=== PATIENT | male | born 1965 | race Caucasian/White ===

== ENCOUNTER 2016-12-03 11:58 | Emergency (ER) | payer OTHER ==
[2016-12-03 12:10] VITALS: BP 149/94
--- NOTE | 2016-12-03 13:07 | XRAY Preliminary Report ---
Exam: XR Knee 4 View RT IMPRESSION: Mild degenerative changes. [facility] SITE ID: [id number]
--- NOTE | 2016-12-03 13:10 | XRAY Report ---
EXAM: RIGHT KNEE RADIOGRAPHY EXAM DATE: 12/03/2016 12:53 PM. CLINICAL HISTORY: Right knee pain, infrapatellar. COMPARISON: None. TECHNIQUE: 4 views. FINDINGS: Bones: Normal. No fractures or bone lesions. Joints: Spurring of medial tibial spine and intercondylar notch. No joint effusion. Normal alignment. Soft Tissues: Superior patellar enthesophyte. No soft tissue swelling. IMPRESSION: Mild degenerative changes. [facility] Referring Provider Line: [phone] SITE ID: [id number]
--- NOTE | 2016-12-03 13:50 | ED Physician Documentation ---
PD HPI LOWER EXT INJURY - Stated complaint Stated Complaint: R KNEE PX - Chief complaint Chief Complaint: Ext Problem - History obtained from History obtained from: Patient, Family (spouse) - History of Present Illness PD HPI LOW EXT INJURY LOCATION: Right, Knee Type of injury: Other (No injury.) Timing - onset: How many days ago (4) Timing - details: Intermittant Worsened by: Moving, Other (Weightbearing.) Associated symptoms: No: Weakness, Numbness, Swelling Contributing factors: Other (Arthritic knees.) - Treatment prior to arrival Treatment prior to arrival: One Tylenol with Codeine yesterday, without relief. - Additional information Additional information: The patient is a 51-year-old male presents with sharp stabbing pain in his right knee. It has been intermittent for the past 4 days. He denies any injury. Denies swelling or fever. He has a history of arthritis involving his knees. He reports similar pain in the past, but not this bad. His past medical history is significant for CVA in 2009. He is visiting here from [place] , having driven cross[place]country 2 weeks ago. Review of Systems Constitutional: denies: Fever Nose: denies: Congestion Cardiac: denies: Chest pain / pressure Respiratory: denies: Dyspnea, Cough GI: denies: Abdominal Pain, Nausea, Vomiting Skin: denies: Rash Musculoskeletal: reports: Joint pain (Right knee). denies: Back pain Neurologic: denies: Focal weakness, Numbness, Headache PD PAST MEDICAL HISTORY - Past Medical History Past Medical History: Yes Cardiovascular: Hypertension, High cholesterol Neuro: CVA (2009), TIA, Tremors Endocrine/Autoimmune: None Psych: Anxiety, Panic attacks, Post traumatic stress disorder - Past Surgical History Past Surgical History: No - Present Medications Home Medications: Ambulatory Orders Medication Instructions Recorded Confirmed Baclofen 10 mg PO BID PRN 12/03/16 12/03/16 Bupropion HCl [Bupropion HCl Sr] 150 mg PO BID 12/03/16 12/03/16 Codeine/Acetaminophen 12/03/16 Cyanocobalamin [Vitamin B-12] 1,000 mcg PO DAILY 12/03/16 12/03/16 Dicyclomine [Bentyl] 20 mg PO QID 12/03/16 12/03/16 Docusate Sodium 100 mg PO BID PRN 12/03/16 12/03/16 Doxycycline Hyclate 100 mg PO Q12H 12/03/16 12/03/16 HYDROcod/ACETAM 5/325 [Vicodin 1 - 2 ea PO Q6H PRN #20 tablet 12/03/16 5/325] LORazepam [Ativan] 0.5 mg PO TID 12/03/16 12/03/16 Lisinopril 20 mg PO DAILY 12/03/16 12/03/16 Naltrexone HCl 50 mg PO DAILY 12/03/16 12/03/16 Naproxen 375 mg PO BID 12/03/16 12/03/16 Nortriptyline HCl 75 mg PO DAILY 12/03/16 12/03/16 Omeprazole 20 mg PO BID 12/03/16 12/03/16 Propranolol [Inderal] 10 mg PO TID 12/03/16 12/03/16 Simvastatin 20 mg PO DAILY 12/03/16 12/03/16 buPROPion [Wellbutrin Xl] 150 mg PO BID 12/03/16 12/03/16 hydroCHLOROthiazide [Hydrodiuril] 25 mg PO DAILY 12/03/16 12/03/16 - Allergies Allergies/Adverse Reactions: Allergies Allergy/AdvReac Type Severity Reaction Status Date / Time Unable to Assess Allergy Verified 12/03/16 12:08 - Social History Does the pt smoke?: No Smoking Status: Never smoker Does the pt drink ETOH?: No Does the pt have substance abuse?: Yes - Immunizations Immunizations are current?: Yes - POLST Patient has POLST: No PD ED PE NORMAL - Vitals Vital signs reviewed: Yes (hypertensive) - General General: Alert and oriented X 3, Well developed/nourished, Other (Overweight; speaks with a stutter.) - HEENT HEENT: Atraumatic - Neck Neck: No bony TTP - Cardiac Cardiac: RRR - Respiratory Respiratory: No respiratory distress, Clear bilaterally - Back Back: No CVA TTP, No spinal TTP - Derm Derm: No rash - Extremities Extremities: No edema, No calf tenderness / cord, Other (Tenderness to palpation over the infrapatellar tendon no tenderness to palpation over the medial joint line, lateral popliteal fossa. Able to flex to 90, and fully extend. There is no ligamentous instability detected. Distal neurovascular is intact.) - Neuro Neuro: Alert and oriented X 3, No motor deficit, No sensory deficit, Other ( Gross tremor involving mostly the right upper extremity.) Results - Vitals Vitals: Oxygen O2 Source Room air - Rads (name of study) Right knee Radiology: Prelim report reviewed, EMP read contemporaneously, See rad report ( Mild degenerative changes.) PD MEDICAL DECISION MAKING - ED course Complexity details: reviewed results, re-evaluated patient, considered differential, d/w patient, d/w family ED course: The patient's presentation is most consistent with right knee strain. X-ray reveals arthritic changes, with no evidence of acute radiographic abnormality. His presentation does not suggest a septic joint or DVT. Treatment in the emergency department included application of a knee immobilizer, and administration of Vicodin one tablet orally. Discharged with prescription for Vicodin, 20 tablets. I discussed with him and his the expected course of injury, symptomatic treatment and outpatient follow-up, as potentially worrisome signs or symptoms that should prompt reevaluation in the emergency department. Departure - Departure Disposition: 01 Home, Self Care Clinical Impression: Knee strain Qualifiers: Encounter type: initial encounter Laterality: right Qualified Code(s): S86.911A - Strain of unspecified muscle(s) and tendon(s) at lower leg level, right leg, initial encounter Instructions: ED Sprain Knee Prescriptions: HYDROcod/ACETAM 5/325 [Vicodin 5/325] 1 - 2 ea PO Q6H PRN #20 tablet PRN Reason: Pain Comments: Use a knee mobilizer for comfort. Apply icepack to your knee intermittently for the next 2 or 3 days. You can use ibuprofen, up to 800 mg 3 times daily for its anti-inflammatory effect. You can use Vicodin as prescribed if needed for pain. Return to the emergency room if you develop increasing pain or otherwise worsening symptoms. Discharge Date/Time: 12/03/16 14:24
[2016-12-03] MEDS ORDERED: HYDROcod/ACETAM 5/325 MG TABLET PO STA (13:57)
[2016-12-03] MEDS ORDERED: HYDROcod/ACETAM 5/325 MG TABLET ONE (14:04)
== END 2016-12-03 14:24 | disposition home or self-care (01) ==
LOC: ED 11:58
DX: S86.911A Strain of unspecified muscle(s) and tendon(s) at lower leg level, right leg, initial encounter (principal); X58.XXXA Exposure to other specified factors, initial encounter; M17.11 Unilateral primary osteoarthritis, right knee; I10 Essential (primary) hypertension; Z86.73 Personal history of transient ischemic attack (TIA), and cerebral infarction without residual deficits
CPT/HCPCS: 73564; 99283; A9270

== ENCOUNTER 2019-12-05 09:57 | Emergency (ER) | payer OTHER ==
[2019-12-05 10:04] VITALS: BP 142/48
--- NOTE | 2019-12-05 10:19 | ED Physician Documentation ---
PD HPI HEENT - Stated complaint Stated Complaint: EAR PX - Chief complaint Chief Complaint: Heent - History obtained from History obtained from: Patient - Additional information Additional information: Had an intermittent pain near the left ear today. He has chronic tinnitus which is unchanged. There is no loss of hearing. No other URI symptoms. Pain is mild at this juncture. Review of Systems Constitutional: reports: Reviewed and negative Nose: reports: Reviewed and negative Cardiac: reports: Reviewed and negative Respiratory: reports: Reviewed and negative PD PAST MEDICAL HISTORY - Past Medical History Cardiovascular: Hypertension, High cholesterol Endocrine/Autoimmune: None Psych: Anxiety, Panic attacks, Post traumatic stress disorder - Past Surgical History Past Surgical History: Yes General: Colonoscopy - Present Medications Home Medications: Ambulatory Orders Medication Instructions Recorded Confirmed Baclofen 10 mg PO BID PRN 12/03/16 12/03/16 Cyanocobalamin [Vitamin B-12] 1,000 mcg PO DAILY 12/03/16 12/03/16 Dicyclomine [Bentyl] 20 mg PO QID 12/03/16 12/03/16 Docusate Sodium 100 mg PO BID PRN 12/03/16 12/03/16 LORazepam [Ativan] 0.5 mg PO TID 12/03/16 12/03/16 Naltrexone HCl 50 mg PO DAILY 12/03/16 12/03/16 Nortriptyline HCl 75 mg PO DAILY 12/03/16 12/03/16 Omeprazole 20 mg PO BID 12/03/16 12/03/16 Simvastatin 20 mg PO DAILY 12/03/16 12/03/16 buPROPion [Wellbutrin Xl] 150 mg PO BID 12/03/16 12/03/16 hydroCHLOROthiazide [Hydrodiuril] 25 mg PO DAILY 12/03/16 12/03/16 lisinopriL [Lisinopril] 20 mg PO DAILY 12/03/16 12/03/16 Acyclovir 800 mg PO 5XD #50 tablet 12/05/19 predniSONE [Deltasone] 20 mg PO [id number] #21 tab 12/05/19 - Allergies Allergies/Adverse Reactions: Allergies Allergy/AdvReac Type Severity Reaction Status Date / Time amlodipine Allergy Edema Verified 12/05/19 10:04 - Social History Does the pt smoke?: No Smoking Status: Never smoker Does the pt drink ETOH?: No Does the pt have substance abuse?: No - Immunizations Immunizations are current?: Yes - POLST Patient has POLST: No PD ED PE NORMAL - Vitals Vital signs reviewed: Yes - General General: Alert and oriented X 3, No acute distress - HEENT HEENT: Other (There is a very faint redness just anterior to the ear which I wonder if is early shingles, otherwise his TM and the rest of ENT exam is normal.) - Neck Neck: Supple, no meningeal sign, No bony TTP - Neuro Neuro: Alert and oriented X 3, Normal speech Results - Vitals Vitals: Vital Signs - 24 hr 12/05/19 10:02 Temperature 36.5 C Heart Rate 75 Respiratory 18 Rate Blood Pressure 142/48 H O2 Saturation 99 Oxygen O2 Source Room air PD MEDICAL DECISION MAKING - ED course ED course: Cause of pain is unclear, could be early zoster, will prescribe routine meds for same but advised to wait for more significant rash and to return for new or worsening symptoms. Departure - Departure Disposition: 01 Home, Self Care Clinical Impression: Ear pain, left Condition: Good Record reviewed to determine appropriate education?: Yes Instructions: ED Acute Pain [facility] Follow-Up: [facility] [Provider Group] Prescriptions: Acyclovir 800 mg PO 5XD #50 tablet predniSONE [Deltasone] 20 mg PO [id number] #21 tab Comments: As discussed, the tympanic membrane/eardrum and canal look fine. No sign of mastoiditis. I wonder if you might have early shingles, fill the medications if you develop more of a rash in the area and return if worse.
== END 2019-12-05 10:37 | disposition home or self-care (01) ==
LOC: ED 09:57
DX: H92.02 Otalgia, left ear (principal); I10 Essential (primary) hypertension
CPT/HCPCS: 99282; 99283